=== PATIENT | female | born 1995 | race Two or more races ===

== ENCOUNTER 2025-04-23 12:20 | Emergency (ER) | payer OTHER ==
[~2025-04-23] VITALS: Ht 175.3 cm; Wt 72.6 kg
[2025-04-23 12:32] VITALS: BP 113/71; TEMP 98.6
[2025-04-23] MEDS ORDERED: NAPR-1009 PO (12:56)
[2025-04-23] MEDS: ONDANSETRON HCL/PF 4 MG/2 ML VIAL IVP ONE (13:01)
[2025-04-23] MEDS: IV NS 0.9% 1,000 ML BAG IV ONE (13:01)
[2025-04-23] MEDS: MORPHINE SULFATE INJ 2 MG/ML DISP.SYRIN IV ONE (13:01)
[2025-04-23] MEDS: KETOROLAC TROMETHAMINE INJ 30 MG/ML VIAL IV ONE (13:01)
[2025-04-23 13:10] VITALS: O2SAT 99
== END 2025-04-23 13:11 | disposition home or self-care (01) ==
LOC: ER 12:25
DX: S93.691A Other sprain of right foot, initial encounter (principal); Z60.2 Problems related to living alone; Z87.39 Personal history of other diseases of the musculoskeletal system and connective tissue; X50.1XXA Overexertion from prolonged static or awkward postures, initial encounter; Y93.89 Activity, other specified; Y92.89 Other specified places as the place of occurrence of the external cause; Y99.8 Other external cause status
CPT/HCPCS: 73630-TC